=== PATIENT | male | born 1995 | race Caucasian/White ===

== ENCOUNTER 2025-01-31 21:02 | Emergency (ER) | payer OTHER, SELFPAY ==
[2025-01-31 21:05] VITALS: BP 148/97
--- NOTE | 2025-01-31 22:25 | ED.GENMED ---
History of Present Illness
General
Chief Complaint: Musculo-Skeletal Complaint
Source: patient
Exam Limitations: none
Time Seen by Provider: 01/31/25 21:36
History of Present Illness
History of Present Illness:
Called and twisted his right ankle and foot in a ladder yesterday. No other injury or complaint. Initially was able to bear weight but has progressed over the last 24 hours
Past History
Past History
ED Past Medical History: Other (Paigeson Campbell syndrome (Brachial Plexopathy), migraines)
Social History
Tobacco: Non-smoker
Alcohol: Occasional
Drug: None
Phy Exam
Physical Exam
Physical Exam:
General: Nontoxic appearing in no distress
Skin: Warm and dry, no rash
Neuro: Alert, nontoxic, grossly nonfocal
Psychiatric: Good eye contact and appropriate
Musculoskeletal: Right hip thigh knee proximal tib-fib all within normal limits. Very minimal posterior calf tenderness. Achilles intact. Moderate swelling to the ankle lateral greater than medial and more swelling to the foot dorsally lateral
greater than medial. Mild tenderness to the medial and lateral malleolus. Tenderness to the right dorsal foot. No laxity. Good distal pulses and color. No fifth metatarsal tenderness
Course
Orders/Labs/Results
Orders:
Orders
01/31/25 21:08
CR Ankle - Right Min 3 Views * Urgent
Comment:
Reason For Exam: pain/swelling
CR Foot - Right Min 3 Views Urgent
Reason For Exam: pain/swelling
01/31/25 22:24
Crutches-Treatment ONCE
Splints/Slings/Crut- Treatment ONCE
Vital Signs
Initial and Last Documented VS:
Initial Vital Signs
Temp Pulse Resp BP Pulse Ox
98.2 F 90 20 148/97 99
01/31/25 21:05 01/31/25 21:05 01/31/25 21:05 01/31/25 21:05 01/31/25 21:05
Last Documented Vital Signs
Temp Pulse Resp BP Pulse Ox
98.2 F 90 20 148/97 99
01/31/25 21:05 01/31/25 21:05 01/31/25 21:05 01/31/25 21:05 01/31/25 21:05
MDM/Problems Addressed
Differential Diagnosis Includes:
No Achilles rupture clinically. No fifth metatarsal fracture. However significant ligamentous injury to the foot. Posterior splint crutches and orthopedic follow-up
*Radiology
Radiology exam reviewed: preliminary read by ED provider (Negative) and radiology read reviewed (Negative)
*Critical Care Note
Total Time (30-74mins, 75-104mins- exclusive of procedures): Not Applicable
ED Attending Note
-
Portions of this chart may have been created with voice recognition software.� Occasional wrong word or��sound alike� substitutions may have occurred due to the inherent limitations of voice recognition software.
Discharge Plan
Departure
Patient Disposition: Home (Routine Discharge)
Date of Disposition: 01/31/25
Time of Disposition: 22:27
Patient with high blood pressure during this ER visit?: Yes
Discharge Problem:
Right foot/ankle sprain
Instructions: Ankle sprain - ED discharge instructions, Foot sprain - ED discharge instructions, BLOOD PRESSURE
Prescriptions:
No Action
metoprolol succinate 12.5 MG tablet extended release 24 hr
12.5 mg PO DAILY PRN (Reason: palpitations) Qty: 30 0RF
Referrals:
[facility], [Other]
Fortino Shah MD [Family Provider] -
Bang De Los Santos MD [Active] - Follow up in 5-7 days
Activity Restrictions/Additional Instructions:
Although we did not see any fracture, you have a significant ligamentous injury to the right foot and ankle.
Nonweightbearing crutches Advil or Motrin for pain
Call the orthopedist tomorrow for close follow-up
Interventions
Interventions:
*Risk Screen - Suicide Last Done: 01/31/25 21:05
*General Assessment Last Done: 01/31/25 21:05
*Neglect/Abuse Screening Last Done: 01/31/25 21:05
ED-Musculoskeletal Assessment Last Done: 01/31/25 22:13
Discharge Date and Time
Print Language: LAO
== END 2025-01-31 23:00 | disposition home or self-care (01) ==
LOC: EMR 21:02
PROVIDERS: EMERGENCY PHYSICIAN Emergency Medicine; FAMILY PHYSICIAN Internal Medicine
DX: S93.401A Sprain of unspecified ligament of right ankle, initial encounter (principal); S93.601A Unspecified sprain of right foot, initial encounter; W11.XXXA Fall on and from ladder, initial encounter; R03.0 Elevated blood-pressure reading, without diagnosis of hypertension; G43.909 Migraine, unspecified, not intractable, without status migrainosus
CPT/HCPCS: 99283; 29515; 73610; 73630

== ENCOUNTER → 2025-06-24 11:53 | Outpatient (REF) | payer OTHER, SELFPAY | LOC: DHSLP 11:53 | PROVIDERS: ATTENDING PHYSICIAN Internal Medicine | DX: G47.33 Obstructive sleep apnea (adult) (pediatric) (principal) | CPT/HCPCS: 95800 ==